=== PATIENT | female | born 1985 | race American Indian/Alaskan Native ===

== ENCOUNTER 2017-11-01 03:14 | Inpatient (IN) | payer MEDICAID, OTHER ==
[2017-11-01] MEDS ORDERED: LACTATED RINGERS 1,000 ML IV ONE (04:41)
[2017-11-01] MEDS ORDERED: LACTATED RINGERS 1,000 ML ONE ×3 (04:44→19:33)
[2017-11-01] MEDS ORDERED: POLYCILLIN/NS 2 GM/100 ML 2 GM/100 ML BAG IV ONE (07:30)
[2017-11-01 07:51] LABS: Basophils % (Auto) 0.7 % (0.0-1.8); Eosinophils % (Auto) 0.4 % (0.0-4.3); Hematocrit 37.3 % (30.3-42.9); Hemoglobin 12.8 gm/dl (10.1-14.3); Mean Corpuscular HGB Conc 34 % (30-34); Mean Corpuscular Hemoglobin 31 pg (28-32); Mean Corpuscular Volume 90 fl (79-97); Platelet Count 130 K/mm3 (140-440); Red Blood Count 4.15 M/mm3 (3.65-5.03); Red Cell Distribution Width 13.9 % (13.2-15.2); White Blood Count 7.6 K/mm3 (4.5-11.0)
--- NOTE | 2017-11-01 07:51 | History and Physical Report ---
History of Present Illness Date of examination: 11/01/17 Date of admission: 11/01/17 03:15 Chief complaint: Labor History of present illness: 32 year old presents to L&D in labor. 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 denies: smoking, alcohol abuse, prescription drug abuse, IV drug use - Obstetrical History Expected Date of Delivery: 11/06/17 Actual Gestation: 39 Week(s) 2 Day(s) : 2 Para: 0 Hx # Term Pregnancies: 1 Number of Pregnancies: 0 Spontaneous Abortions: 1 Induced : 0 Number of Living Children: 0 Medications and Allergies Allergies Allergy/AdvReac Type Severity Reaction Status Date / Time No Known Allergies Allergy Verified 11/01/17 04:42 Active Meds: Active Medications Ampicillin Sodium (Polycillin/Ns 2 Gm/100 Ml) 2 gm in 100 mls @ 100 mls/hr IV ONCE ONE Stop: 11/01/17 08:29 Ampicillin Sodium (Polycillin/Ns 1 Gm/50 Ml) 1 gm in 50 mls @ 100 mls/hr IV Q4HR ALICIA PRN Reason: Protocol Review of Systems All systems: negative (contractions) - Vital Signs Vital signs: Vital Signs Temp Resp 98.4 F 20 11/01/17 03:40 11/01/17 03:40 Temp Pulse Resp BP Pulse Ox 98.4 F 20 11/01/17 03:40 11/01/17 03:40 - Physical Exam Cardiovascular: Regular rate, Normal S1, Normal S2 Lungs: Positive: Clear to auscultation Abdomen: Positive: normal appearance, soft. Negative: distention, tenderness, guarding, rigidity Genitourinary (Female): Positive: normal external genitalia. Negative: perineal /vulvar lesions Vagina: Positive: normal moisture Uterus: Positive: enlarged. Negative: tender Extremities: Positive: normal. Negative: edema - Obstetrical FHR: category 1 Uterine Contraction Monitor Mode: External Cervical Dilatation: 3 Cervical Effacement Percentage: 50 station: -3 Uterine Contraction Pattern: Regular Uterine Contraction Intensity: Moderate Results All other labs normal. Assessment and Plan A: at 39 weeks, 2 days gestation. Labor. GBS positive. GDM, diet controlled. P:Admit. GBS prophylaxis. Anticipate .
[2017-11-01] MEDS ORDERED: PITOCin/NS 30 UNIT/500ML 30 UNITS/500 ML BAG IV SCH (12:00)
[2017-11-01] MEDS: POLYCILLIN/NS 1 GM/50 ML 1 GM/50 ML BAG IV SCH ×3 (12:09→21:12)
--- NOTE | 2017-11-01 12:17 | Ultrasound Report ---
ULTRASOUND OB LIMITED History: well being, presentation Technique: Transabdominal ultrasound with Doppler interrogation. Gestation: Single Position: Cephalic Heart Rate: 131 BPM
--- NOTE | 2017-11-01 13:44 | Progress Note ---
Assessment and Plan A: 32yo G 2 P 0 0 1 0 @ 39 weeks 2 days Latent Labor GDM diet-controlled PIH P: Oxytocin for labor augmentation Continue GBS prophylaxis Toxemia labs ordered - results pending Dr. Segundo consulted about POC Anticipate vaginal delivery Subjective - Subjective Date of service: 11/01/17 Principal diagnosis: Intrauterine @ term, Latent Labor Interval history: Patient presented to L&D in labor. complicated by GDM diet-controlled and Gestational HTN. 24-hr urine done 10/27 indicated 1159mg of protein. She is GBS pos. Patient reports: movement normal, contractions, other (She denies headache , vision changes, epigastric pain or N/V. ), no loss of fluid, no vaginal bleeding Objective - Vital Signs Vital Signs: Vital Signs - 12hr 11/01/17 11/01/17 11/01/17 03:40 12:15 13:16 Temperature 98.4 F Pulse Rate 71 67 Respiratory 20 Rate Blood Pressure 135/79 199/92 11/01/17 13:27 Temperature Pulse Rate 68 Respiratory Rate Blood Pressure 166/83 - Exam Breasts: deferred Cardiovascular: Regular rate, Normal S1, Normal S2 Lungs: Clear to auscultation, Normal air movement Abdomen: Present: normal appearance, soft Uterus: Present: normal FHR: category 1 FHR comments: Baseline 130, noderate variability, 15X15 accels, no decels Uterine Contraction Monitor Mode: External Cervical Dilatation: 3.5 Cervical Effacement Percentage: 50 station: -3 Uterine Contraction Pattern: Irregular Extremities: edema (1+ BLE) Deep Tendon Reflex Grade: Dull/Diminished +1 - Labs Labs: Abnormal Labs 11/01/17 04:45 Plt Count 130 L [place] % (Auto) 7.4 H Laboratory Results - last 24 hr 11/01/17 11/01/17 04:45 04:45 WBC 7.6 RBC 4.15 Hgb 12.8 Hct 37.3 MCV 90 MCH 31 MCHC 34 RDW 13.9 Plt Count 130 L Lymph % (Auto) 26.5 [place] % (Auto) 7.4 H Eos % (Auto) 0.4 Baso % (Auto) 0.7 Lymph # 2.0 [place] # 0.6 Eos # 0.0 Baso # 0.1 Seg Neutrophils % 65.0 Seg Neutrophils # 4.9 Blood Type O POSITIVE Antibody Screen Negative
[2017-11-01 14:11] LABS: Hematocrit 35.1 % (30.3-42.9); Hemoglobin 12.3 gm/dl (10.1-14.3); Mean Corpuscular HGB Conc 35 % (30-34); Mean Corpuscular Hemoglobin 31 pg (28-32); Mean Corpuscular Volume 88 fl (79-97); Platelet Count 130 K/mm3 (140-440); Red Blood Count 3.97 M/mm3 (3.65-5.03); Red Cell Distribution Width 13.8 % (13.2-15.2); White Blood Count 8.9 K/mm3 (4.5-11.0)
[2017-11-01 14:20] LABS: Bacteria,Urine 1+ /HPF (Negative); Bilirubin,Urine NEG (Negative); Blood,Urine NEG (Negative); Ketones,Urine TR mg/dL (Negative); Leukocyte Esterase,Urine NEG (Negative); Mucus,Urine FEW /HPF; Nitrite,Urine NEG (Negative); Urobilinogen,Urine < 2.0 mg/dL (<2.0)
[2017-11-01 14:29] LABS: Alanine Aminotransferase 8 units/L (7-56); Lactate Dehydrogenase 145 units/L (91-180); Uric Acid 5.7 mg/dL (3.5-7.6)
[2017-11-01] MEDS ORDERED: SUBLIMAZE IV ONE ×2 (16:00→17:49)
[2017-11-01] MEDS ORDERED: SUBLIMAZE ONE (16:08)
[2017-11-02] MEDS ORDERED: SUBLIMAZE IV PRN (00:16)
[2017-11-02] MEDS ORDERED: STADOL IV PRN (00:16)
--- NOTE | 2017-11-02 00:38 | Progress Note ---
Assessment and Plan - Patient Problems (1) 39 weeks gestation of Current Visit: Yes Status: Acute Plan to address problem: Anticipate . (2) Gestational HTN Current Visit: Yes Status: Acute Plan to address problem: Toxemia labs were normal. BP has been stable. patient has been asymptomatic. Will continue BP monitoring. (3) Positive GBS test Current Visit: Yes Status: Acute Plan to address problem: IV antibiotics given. (4) Diabetes, gestational Current Visit: Yes Status: Acute Plan to address problem: Glucose has been stable. Continue FS every 4 hours during labor. (5) Active labor Current Visit: Yes Status: Acute Plan to address problem: Continue fatal tracing and toco monitoring. Subjective - Subjective Date of service: 11/02/17 Principal diagnosis: 39 weeks and 3 days, gestational HTN Interval history: Patient is a 32 year old , EDC 11/06/17 at 39 weeks and 3 days who was admitted for contractions. She also has gestational HTN. Since admission, She has been asymptomatic and her BP has been stable. Toxemia labs were normal. tracing did show some variables after admission and has become CAT 1 thereafter. She was augmented with pitocin. Her last exam at 10:40 PM was 4 cm/ 60%/-3. Patient reports: movement normal, contractions, other (She denies headache , vision changes, epigastric pain or N/V. ), no loss of fluid, no vaginal bleeding Objective - Vital Signs Vital Signs: Vital Signs - 12hr 11/01/17 11/01/17 11/01/17 13:16 13:27 14:03 Temperature Pulse Rate 67 68 71 Respiratory Rate Blood Pressure 199/92 166/83 128/70 Blood Pressure [Right] O2 Sat by Pulse Oximetry 11/01/17 11/01/17 11/01/17 14:19 14:34 14:48 Temperature Pulse Rate 67 77 74 Respiratory Rate Blood Pressure 150/69 144/72 133/67 Blood Pressure [Right] O2 Sat by Pulse Oximetry 11/01/17 11/01/17 11/01/17 15:03 15:19 15:34 Temperature Pulse Rate 80 73 88 Respiratory Rate Blood Pressure 170/77 144/70 163/80 Blood Pressure [Right] O2 Sat by Pulse Oximetry 11/01/17 11/01/17 11/01/17 15:46 15:59 16:06 Temperature Pulse Rate 71 81 75 Respiratory Rate Blood Pressure 155/73 177/84 149/83 Blood Pressure [Right] O2 Sat by Pulse Oximetry 11/01/17 11/01/17 11/01/17 16:25 16:55 17:26 Temperature Pulse Rate 77 75 77 Respiratory Rate Blood Pressure 149/72 132/72 157/82 Blood Pressure [Right] O2 Sat by Pulse Oximetry 11/01/17 11/01/17 11/01/17 17:55 18:06 18:11 Temperature Pulse Rate 83 78 81 Respiratory Rate Blood Pressure 152/91 Blood Pressure [Right] O2 Sat by Pulse 99 99 Oximetry 11/01/17 11/01/17 11/01/17 18:16 18:21 18:25 Temperature Pulse Rate 83 77 73 Respiratory Rate Blood Pressure 135/69 Blood Pressure [Right] O2 Sat by Pulse 99 99 Oximetry 11/01/17 11/01/17 11/01/17 18:26 18:31 18:36 Temperature Pulse Rate 71 71 93 H Respiratory Rate Blood Pressure Blood Pressure [Right] O2 Sat by Pulse 99 99 100 Oximetry 11/01/17 11/01/17 11/01/17 18:41 18:46 18:51 Temperature Pulse Rate 79 82 87 Respiratory Rate Blood Pressure Blood Pressure [Right] O2 Sat by Pulse 100 100 100 Oximetry 11/01/17 11/01/17 11/01/17 18:56 19:01 19:06 Temperature Pulse Rate 82 96 H 92 H Respiratory Rate Blood Pressure 154/80 Blood Pressure [Right] O2 Sat by Pulse 99 100 98 Oximetry 11/01/17 11/01/17 11/01/17 19:11 19:16 19:21 Temperature Pulse Rate 77 63 73 Respiratory Rate Blood Pressure Blood Pressure [Right] O2 Sat by Pulse 99 99 99 Oximetry 11/01/17 11/01/17 11/01/17 19:25 19:26 19:31 Temperature Pulse Rate 77 76 84 Respiratory Rate Blood Pressure 134/74 Blood Pressure [Right] O2 Sat by Pulse 99 100 Oximetry 11/01/17 11/01/17 11/01/17 19:39 19:44 19:49 Temperature 97.1 F L Pulse Rate 87 82 80 Respiratory 15 Rate Blood Pressure Blood Pressure 152/87 [Right] O2 Sat by Pulse 99 99 99 Oximetry 11/01/17 11/01/17 11/01/17 19:52 19:54 19:55 Temperature Pulse Rate 78 82 94 H Respiratory Rate Blood Pressure 152/87 173/99 Blood Pressure [Right] O2 Sat by Pulse 99 Oximetry 11/01/17 11/01/17 11/01/17 19:58 19:59 20:04 Temperature Pulse Rate 79 92 H 78 Respiratory Rate Blood Pressure 139/69 Blood Pressure [Right] O2 Sat by Pulse 99 99 Oximetry 11/01/17 11/01/17 11/01/17 20:09 20:14 20:19 Temperature Pulse Rate 82 84 93 H Respiratory Rate Blood Pressure Blood Pressure [Right] O2 Sat by Pulse 99 99 99 Oximetry 11/01/17 11/01/17 11/01/17 20:24 20:25 20:29 Temperature Pulse Rate 74 80 65 Respiratory Rate Blood Pressure 139/65 Blood Pressure [Right] O2 Sat by Pulse 99 99 Oximetry 11/01/17 11/01/17 11/01/17 20:34 20:39 20:44 Temperature Pulse Rate 81 80 86 Respiratory Rate Blood Pressure Blood Pressure [Right] O2 Sat by Pulse 98 99 98 Oximetry 11/01/17 11/01/17 11/01/17 20:49 20:54 20:55 Temperature Pulse Rate 85 83 88 Respiratory Rate Blood Pressure 146/68 Blood Pressure [Right] O2 Sat by Pulse 98 98 Oximetry 11/01/17 11/01/17 11/01/17 20:59 21:04 21:09 Temperature Pulse Rate 85 85 93 H Respiratory Rate Blood Pressure Blood Pressure [Right] O2 Sat by Pulse 99 98 99 Oximetry 11/01/17 11/01/17 11/01/17 21:14 21:19 21:24 Temperature Pulse Rate 94 H 70 81 Respiratory Rate Blood Pressure Blood Pressure [Right] O2 Sat by Pulse 99 98 98 Oximetry 11/01/17 11/01/17 11/01/17 21:25 21:29 21:34 Temperature Pulse Rate 84 88 93 H Respiratory Rate Blood Pressure 138/63 Blood Pressure [Right] O2 Sat by Pulse 98 98 Oximetry 11/01/17 11/01/17 11/01/17 21:39 21:44 21:49 Temperature Pulse Rate 82 97 H 100 H Respiratory Rate Blood Pressure Blood Pressure [Right] O2 Sat by Pulse 98 98 98 Oximetry 11/01/17 11/01/17 11/01/17 21:54 21:55 21:59 Temperature Pulse Rate 94 H 100 H 95 H Respiratory Rate Blood Pressure 135/74 Blood Pressure [Right] O2 Sat by Pulse 98 98 Oximetry 11/01/17 11/01/17 11/01/17 22:04 22:09 22:14 Temperature Pulse Rate 82 89 97 H Respiratory Rate Blood Pressure Blood Pressure [Right] O2 Sat by Pulse 98 98 98 Oximetry 11/01/17 11/01/17 11/01/17 22:26 22:27 22:31 Temperature Pulse Rate 93 H 86 94 H Respiratory Rate Blood Pressure 152/72 Blood Pressure [Right] O2 Sat by Pulse 95 92 99 Oximetry 11/01/17 11/01/17 11/01/17 22:36 22:41 22:46 Temperature Pulse Rate 95 H 87 74 Respiratory Rate Blood Pressure Blood Pressure [Right] O2 Sat by Pulse 99 99 97 Oximetry 11/01/17 11/01/17 11/01/17 22:51 22:55 22:56 Temperature Pulse Rate 70 71 77 Respiratory Rate Blood Pressure 133/72 Blood Pressure [Right] O2 Sat by Pulse 98 98 Oximetry 11/01/17 11/01/17 11/01/17 23:01 23:06 23:11 Temperature Pulse Rate 76 80 78 Respiratory Rate Blood Pressure Blood Pressure [Right] O2 Sat by Pulse 98 97 96 Oximetry 11/01/17 11/01/17 11/01/17 23:16 23:21 23:25 Temperature Pulse Rate 74 89 66 Respiratory Rate Blood Pressure 145/70 Blood Pressure [Right] O2 Sat by Pulse 97 98 Oximetry 11/01/17 11/01/17 11/01/17 23:26 23:31 23:35 Temperature Pulse Rate 76 70 74 Respiratory Rate Blood Pressure Blood Pressure [Right] O2 Sat by Pulse 97 98 94 Oximetry 11/01/17 11/01/17 11/01/17 23:36 23:41 23:46 Temperature Pulse Rate 102 H 92 H 100 H Respiratory Rate Blood Pressure Blood Pressure [Right] O2 Sat by Pulse 95 99 99 Oximetry 11/01/17 11/01/17 11/01/17 23:51 23:55 23:56 Temperature Pulse Rate 88 68 74 Respiratory Rate Blood Pressure 134/65 Blood Pressure [Right] O2 Sat by Pulse 99 99 Oximetry 11/02/17 11/02/17 11/02/17 00:01 00:06 00:11 Temperature Pulse Rate 73 81 88 Respiratory Rate Blood Pressure Blood Pressure [Right] O2 Sat by Pulse 99 98 98 Oximetry 11/02/17 11/02/17 11/02/17 00:16 00:21 00:26 Temperature Pulse Rate 67 107 H 87 Respiratory Rate Blood Pressure 141/77 Blood Pressure [Right] O2 Sat by Pulse 99 99 96 Oximetry 11/02/17 00:31 Temperature Pulse Rate 92 H Respiratory Rate Blood Pressure Blood Pressure [Right] O2 Sat by Pulse 96 Oximetry - Exam Cardiovascular: Normal S1, Normal S2 Lungs: Clear to auscultation Vulva: both: normal FHR: category 1 Uterine Contraction Monitor Mode: External Cervical Dilatation: 4 Cervical Effacement Percentage: 60 station: -3 Uterine Contraction Pattern: Irregular Deep Tendon Reflex Grade: Normal +2 - Labs Labs: Abnormal Labs 11/01/17 11/01/17 11/01/17 04:45 13:45 13:45 MCHC 35 H Plt Count 130 L 130 L [place] % (Auto) 7.4 H Creatinine 0.4 L POC Glucose 11/01/17 14:05 MCHC Plt Count [place] % (Auto) Creatinine POC Glucose 63 L Laboratory Results - last 24 hr 11/01/17 11/01/17 11/01/17 04:45 04:45 04:45 WBC 7.6 RBC 4.15 Hgb 12.8 Hct 37.3 MCV 90 MCH 31 MCHC 34 RDW 13.9 Plt Count 130 L Lymph % (Auto) 26.5 [place] % (Auto) 7.4 H Eos % (Auto) 0.4 Baso % (Auto) 0.7 Lymph # 2.0 [place] # 0.6 Eos # 0.0 Baso # 0.1 Seg Neutrophils % 65.0 Seg Neutrophils # 4.9 Creatinine Estimated GFR POC Glucose Uric Acid AST ALT Lactate Dehydrogenase Urine Color Urine Turbidity Urine pH Ur Specific [place] Urine Protein Urine Glucose (UA) Urine Ketones Urine Blood Urine Nitrite Urine Bilirubin Urine Urobilinogen Ur Leukocyte Esterase Urine WBC (Auto) Urine RBC (Auto) U Epithel Cells (Auto) Urine Bacteria (Auto) Hyaline Casts Urine Mucus RPR Nonreactive Blood Type O POSITIVE Antibody Screen Negative 11/01/17 11/01/17 11/01/17 13:45 13:45 13:53 WBC 8.9 RBC 3.97 Hgb 12.3 Hct 35.1 MCV 88 MCH 31 MCHC 35 H RDW 13.8 Plt Count 130 L Lymph % (Auto) [place] % (Auto) Eos % (Auto) Baso % (Auto) Lymph # [place] # Eos # Baso # Seg Neutrophils % Seg Neutrophils # Creatinine 0.4 L Estimated GFR > 60 POC Glucose Uric Acid 5.7 AST 13 ALT 8 Lactate Dehydrogenase 145 Urine Color Yellow Urine Turbidity Clear Urine pH 6.0 Ur Specific [place] 1.016 Urine Protein 100 mg/dl Urine Glucose (UA) Neg Urine Ketones Tr Urine Blood Neg Urine Nitrite Neg Urine Bilirubin Neg Urine Urobilinogen < 2.0 Ur Leukocyte Esterase Neg Urine WBC (Auto) 1.0 Urine RBC (Auto) 2.0 U Epithel Cells (Auto) 1.0 Urine Bacteria (Auto) 1+ Hyaline Casts 1 Urine Mucus Few RPR Blood Type Antibody Screen 11/01/17 11/01/17 14:05 23:12 WBC RBC Hgb Hct MCV MCH MCHC RDW Plt Count Lymph % (Auto) [place] % (Auto) Eos % (Auto) Baso % (Auto) Lymph # [place] # Eos # Baso # Seg Neutrophils % Seg Neutrophils # Creatinine Estimated GFR POC Glucose 63 L 71 Uric Acid AST ALT Lactate Dehydrogenase Urine Color Urine Turbidity Urine pH Ur Specific [place] Urine Protein Urine Glucose (UA) Urine Ketones Urine Blood Urine Nitrite Urine Bilirubin Urine Urobilinogen Ur Leukocyte Esterase Urine WBC (Auto) Urine RBC (Auto) U Epithel Cells (Auto) Urine Bacteria (Auto) Hyaline Casts Urine Mucus RPR Blood Type Antibody Screen
[2017-11-02] MEDS ORDERED: LACTATED RINGERS 1,000 ML IV SCH ×2 (01:00→07:00)
[2017-11-02] MEDS: POLYCILLIN/NS 1 GM/50 ML 1 GM/50 ML BAG IV SCH ×2 (01:42→05:33)
[2017-11-02] MEDS ORDERED: ePHEDrine SULFATE ONE (03:13)
[2017-11-02] MEDS ORDERED: ePHEDrine SULFATE IV PRN (03:41)
[2017-11-02] MEDS ORDERED: NARCAN 2 MG/2 ML IV PRN (03:41)
--- NOTE | 2017-11-02 03:43 | Anesthesia Consultation ---
Anesthesia Consult and Med Hx Date of service: 11/02/17 - Airway Anesthetic Teeth Evaluation: Good ROM Head & Neck: Adequate Mental/Hyoid Distance: Adequate Mallampati Class: Class II Intubation Access Assessment: Probably Good - Pulmonary Exam CTA: Yes - Cardiac Exam Cardiac Exam: RRR - Pre-Operative Health Status ASA Pre-Surgery Classification: ASA3 Proposed Anesthetic Plan: Epidural, Spinal - Pulmonary Hx Asthma: No COPD: No Hx Pneumonia: No - Cardiovascular System Hx Hypertension: Yes (gestational) - Central Nervous System Hx Seizures: No Hx Psychiatric Problems: No - Endocrine Hx Renal Disease: No Hx End Stage Renal Disease: No Hx Non-Insulin Dependent Diabetes: Yes (gestational) - Hematic Hx Anemia: No Hx Sickle Cell Disease: No - Other Systems Hx Alcohol Use: No Hx Obesity: Yes (morbid) - Additional Comments Anesthesia Medical History Comments: +IUP
[2017-11-02] MEDS ORDERED: fentaNYL-BUPIV 2 MCG/ML-0.125% 200 MCG/100 ML BAG EPIDURAL SCH (04:00)
[2017-11-02] MEDS ORDERED: PEPCID IV ONE ×2 (05:56→06:06)
[2017-11-02] MEDS ORDERED: BICITRA ONE (05:56)
[2017-11-02] MEDS ORDERED: REGLAN ONE (05:56)
[2017-11-02] MEDS ORDERED: PITOCin/NS 20 UNIT/1000ML DRIP 20,000 MILLIUNITS/1,000 ML BAG IV ONE (06:06)
[2017-11-02] MEDS ORDERED: BICITRA PO ONE (06:06)
[2017-11-02] MEDS ORDERED: REGLAN IV ONE (06:06)
--- NOTE | 2017-11-02 06:21 | Progress Note ---
Assessment and Plan - Patient Problems (1) 39 weeks gestation of Current Visit: Yes Status: Acute (2) Gestational HTN Current Visit: Yes Status: Acute Plan to address problem: Toxemia labs were normal. BP has been stable. patient has been asymptomatic. Will continue BP monitoring. (3) Positive GBS test Current Visit: Yes Status: Acute Plan to address problem: IV antibiotics given. (4) Diabetes, gestational Current Visit: Yes Status: Acute Plan to address problem: Glucose has been stable. Continue FS every 4 hours during labor. (5) Active labor Current Visit: Yes Status: Acute Plan to address problem: Tracing is CAT 2 and patient is remote from delivery. I told the patient via a automotive parts coordinator that the tracing is not reassuring and that she needs to be delivery via C/section. Risks, benefits of the procedure were discussed in detail with the patient such as infection, hemorrhage requiring blood transfusion, injury to the bowel, bladder and blood vessels. She expressed understanding, her questions were answered, she gave her informed consent. Patient has been NPO. Anesthesia has been notified. Subjective - Subjective Date of service: 11/02/17 Principal diagnosis: 39 weeks and 3 days, gestational HTN Interval history: Patient is a 32 year old , EDC 11/06/17 at 39 weeks and 3 days who was admitted for contractions. She also has gestational HTN. Since admission, She has been asymptomatic and her BP has been stable. Toxemia labs were normal. tracing did show some variables after admission and has become CAT 1 thereafter. She was augmented with pitocin. Her last exam at 5:50 AM showed SROM with thin meconium fluid, cervixx 6 cm/100%/-2 with caput. tracing showed variables and recovery to baseline. Patient reports: movement normal, contractions, other (She denies headache , vision changes, epigastric pain or N/V. ), no loss of fluid, no vaginal bleeding Objective - Vital Signs Vital Signs: Vital Signs - 12hr 11/01/17 11/01/17 11/01/17 18:21 18:25 18:26 Temperature Pulse Rate 77 73 71 Respiratory Rate Blood Pressure 135/69 Blood Pressure [Right] O2 Sat by Pulse 99 99 Oximetry 11/01/17 11/01/17 11/01/17 18:31 18:36 18:41 Temperature Pulse Rate 71 93 H 79 Respiratory Rate Blood Pressure Blood Pressure [Right] O2 Sat by Pulse 99 100 100 Oximetry 11/01/17 11/01/17 11/01/17 18:46 18:51 18:56 Temperature Pulse Rate 82 87 82 Respiratory Rate Blood Pressure 154/80 Blood Pressure [Right] O2 Sat by Pulse 100 100 99 Oximetry 11/01/17 11/01/17 11/01/17 19:01 19:06 19:11 Temperature Pulse Rate 96 H 92 H 77 Respiratory Rate Blood Pressure Blood Pressure [Right] O2 Sat by Pulse 100 98 99 Oximetry 11/01/17 11/01/17 11/01/17 19:16 19:21 19:25 Temperature Pulse Rate 63 73 77 Respiratory Rate Blood Pressure 134/74 Blood Pressure [Right] O2 Sat by Pulse 99 99 Oximetry 11/01/17 11/01/17 11/01/17 19:26 19:31 19:39 Temperature Pulse Rate 76 84 87 Respiratory Rate Blood Pressure Blood Pressure [Right] O2 Sat by Pulse 99 100 99 Oximetry 11/01/17 11/01/17 11/01/17 19:44 19:49 19:52 Temperature 97.1 F L Pulse Rate 82 80 78 Respiratory 15 Rate Blood Pressure 152/87 Blood Pressure 152/87 [Right] O2 Sat by Pulse 99 99 Oximetry 11/01/17 11/01/17 11/01/17 19:54 19:55 19:58 Temperature Pulse Rate 82 94 H 79 Respiratory Rate Blood Pressure 173/99 139/69 Blood Pressure [Right] O2 Sat by Pulse 99 Oximetry 11/01/17 11/01/17 11/01/17 19:59 20:04 20:09 Temperature Pulse Rate 92 H 78 82 Respiratory Rate Blood Pressure Blood Pressure [Right] O2 Sat by Pulse 99 99 99 Oximetry 11/01/17 11/01/17 11/01/17 20:14 20:19 20:24 Temperature Pulse Rate 84 93 H 74 Respiratory Rate Blood Pressure Blood Pressure [Right] O2 Sat by Pulse 99 99 99 Oximetry 11/01/17 11/01/17 11/01/17 20:25 20:29 20:34 Temperature Pulse Rate 80 65 81 Respiratory Rate Blood Pressure 139/65 Blood Pressure [Right] O2 Sat by Pulse 99 98 Oximetry 11/01/17 11/01/17 11/01/17 20:39 20:44 20:49 Temperature Pulse Rate 80 86 85 Respiratory Rate Blood Pressure Blood Pressure [Right] O2 Sat by Pulse 99 98 98 Oximetry 11/01/17 11/01/17 11/01/17 20:54 20:55 20:59 Temperature Pulse Rate 83 88 85 Respiratory Rate Blood Pressure 146/68 Blood Pressure [Right] O2 Sat by Pulse 98 99 Oximetry 11/01/17 11/01/17 11/01/17 21:04 21:09 21:14 Temperature Pulse Rate 85 93 H 94 H Respiratory Rate Blood Pressure Blood Pressure [Right] O2 Sat by Pulse 98 99 99 Oximetry 11/01/17 11/01/17 11/01/17 21:19 21:24 21:25 Temperature Pulse Rate 70 81 84 Respiratory Rate Blood Pressure 138/63 Blood Pressure [Right] O2 Sat by Pulse 98 98 Oximetry 11/01/17 11/01/17 11/01/17 21:29 21:34 21:39 Temperature Pulse Rate 88 93 H 82 Respiratory Rate Blood Pressure Blood Pressure [Right] O2 Sat by Pulse 98 98 98 Oximetry 11/01/17 11/01/17 11/01/17 21:44 21:49 21:54 Temperature Pulse Rate 97 H 100 H 94 H Respiratory Rate Blood Pressure Blood Pressure [Right] O2 Sat by Pulse 98 98 98 Oximetry 11/01/17 11/01/17 11/01/17 21:55 21:59 22:04 Temperature Pulse Rate 100 H 95 H 82 Respiratory Rate Blood Pressure 135/74 Blood Pressure [Right] O2 Sat by Pulse 98 98 Oximetry 11/01/17 11/01/17 11/01/17 22:09 22:14 22:26 Temperature Pulse Rate 89 97 H 93 H Respiratory Rate Blood Pressure Blood Pressure [Right] O2 Sat by Pulse 98 98 95 Oximetry 11/01/17 11/01/17 11/01/17 22:27 22:31 22:36 Temperature Pulse Rate 86 94 H 95 H Respiratory Rate Blood Pressure 152/72 Blood Pressure [Right] O2 Sat by Pulse 92 99 99 Oximetry 11/01/17 11/01/17 11/01/17 22:41 22:46 22:51 Temperature Pulse Rate 87 74 70 Respiratory Rate Blood Pressure Blood Pressure [Right] O2 Sat by Pulse 99 97 98 Oximetry 11/01/17 11/01/17 11/01/17 22:55 22:56 23:01 Temperature Pulse Rate 71 77 76 Respiratory Rate Blood Pressure 133/72 Blood Pressure [Right] O2 Sat by Pulse 98 98 Oximetry 11/01/17 11/01/17 11/01/17 23:06 23:11 23:16 Temperature Pulse Rate 80 78 74 Respiratory Rate Blood Pressure Blood Pressure [Right] O2 Sat by Pulse 97 96 97 Oximetry 11/01/17 11/01/17 11/01/17 23:21 23:25 23:26 Temperature Pulse Rate 89 66 76 Respiratory Rate Blood Pressure 145/70 Blood Pressure [Right] O2 Sat by Pulse 98 97 Oximetry 11/01/17 11/01/17 11/01/17 23:31 23:35 23:36 Temperature Pulse Rate 70 74 102 H Respiratory Rate Blood Pressure Blood Pressure [Right] O2 Sat by Pulse 98 94 95 Oximetry 11/01/17 11/01/17 11/01/17 23:41 23:46 23:51 Temperature Pulse Rate 92 H 100 H 88 Respiratory Rate Blood Pressure Blood Pressure [Right] O2 Sat by Pulse 99 99 99 Oximetry 11/01/17 11/01/17 11/02/17 23:55 23:56 00:01 Temperature Pulse Rate 68 74 73 Respiratory Rate Blood Pressure 134/65 Blood Pressure [Right] O2 Sat by Pulse 99 99 Oximetry 11/02/17 11/02/17 11/02/17 00:06 00:11 00:16 Temperature Pulse Rate 81 88 67 Respiratory Rate Blood Pressure Blood Pressure [Right] O2 Sat by Pulse 98 98 99 Oximetry 11/02/17 11/02/17 11/02/17 00:21 00:26 00:31 Temperature Pulse Rate 107 H 87 92 H Respiratory Rate Blood Pressure 141/77 Blood Pressure [Right] O2 Sat by Pulse 99 96 96 Oximetry 11/02/17 11/02/17 11/02/17 00:36 00:41 00:46 Temperature Pulse Rate 70 107 H 74 Respiratory Rate Blood Pressure Blood Pressure [Right] O2 Sat by Pulse 95 97 98 Oximetry 11/02/17 11/02/17 11/02/17 00:51 00:55 00:56 Temperature Pulse Rate 108 H 98 H 105 H Respiratory Rate Blood Pressure 136/72 Blood Pressure [Right] O2 Sat by Pulse 99 99 Oximetry 11/02/17 11/02/17 11/02/17 01:01 01:06 01:11 Temperature Pulse Rate 79 67 103 H Respiratory Rate Blood Pressure Blood Pressure [Right] O2 Sat by Pulse 99 98 99 Oximetry 11/02/17 11/02/17 11/02/17 01:20 01:34 01:39 Temperature Pulse Rate 90 105 H 85 Respiratory Rate Blood Pressure Blood Pressure [Right] O2 Sat by Pulse 99 97 99 Oximetry 11/02/17 11/02/17 11/02/17 01:44 01:49 01:54 Temperature Pulse Rate 101 H 93 H 71 Respiratory Rate Blood Pressure Blood Pressure [Right] O2 Sat by Pulse 99 99 98 Oximetry 11/02/17 11/02/17 11/02/17 01:55 01:59 02:04 Temperature Pulse Rate 75 71 88 Respiratory Rate Blood Pressure 142/82 Blood Pressure [Right] O2 Sat by Pulse 98 98 Oximetry 11/02/17 11/02/17 11/02/17 02:09 02:14 02:19 Temperature Pulse Rate 97 H 101 H 107 H Respiratory Rate Blood Pressure Blood Pressure [Right] O2 Sat by Pulse 98 98 99 Oximetry 11/02/17 11/02/17 11/02/17 02:24 02:25 02:27 Temperature Pulse Rate 103 H 96 H 93 H Respiratory Rate Blood Pressure 160/89 Blood Pressure [Right] O2 Sat by Pulse 99 92 Oximetry 11/02/17 11/02/17 11/02/17 02:29 02:34 02:39 Temperature Pulse Rate 97 H 85 72 Respiratory Rate Blood Pressure Blood Pressure [Right] O2 Sat by Pulse 98 98 98 Oximetry 11/02/17 11/02/17 11/02/17 02:44 02:49 02:54 Temperature 97.5 F L Pulse Rate 78 80 81 Respiratory 16 Rate Blood Pressure Blood Pressure 139/85 [Right] O2 Sat by Pulse 99 98 98 Oximetry 11/02/17 11/02/17 11/02/17 02:56 02:59 03:00 Temperature Pulse Rate 81 88 85 Respiratory Rate Blood Pressure 139/85 Blood Pressure [Right] O2 Sat by Pulse 95 94 Oximetry 11/02/17 11/02/17 11/02/17 03:04 03:09 03:14 Temperature Pulse Rate 96 H 80 92 H Respiratory Rate Blood Pressure Blood Pressure [Right] O2 Sat by Pulse 96 96 96 Oximetry 11/02/17 11/02/17 11/02/17 03:20 03:25 03:30 Temperature Pulse Rate 106 H 81 109 H Respiratory Rate Blood Pressure 162/81 Blood Pressure [Right] O2 Sat by Pulse 97 96 97 Oximetry 11/02/17 11/02/17 11/02/17 03:31 03:33 03:35 Temperature Pulse Rate 85 83 82 Respiratory Rate Blood Pressure 149/79 163/79 153/73 Blood Pressure [Right] O2 Sat by Pulse 95 Oximetry 11/02/17 11/02/17 11/02/17 03:37 03:39 03:40 Temperature Pulse Rate 83 105 H 95 H Respiratory Rate Blood Pressure 152/73 144/84 Blood Pressure [Right] O2 Sat by Pulse 97 Oximetry 11/02/17 11/02/17 11/02/17 03:41 03:43 03:45 Temperature Pulse Rate 100 H 80 100 H Respiratory Rate Blood Pressure 143/91 138/72 Blood Pressure [Right] O2 Sat by Pulse 97 Oximetry 11/02/17 11/02/17 11/02/17 03:50 03:55 04:00 Temperature Pulse Rate 102 H 103 H 107 H Respiratory Rate Blood Pressure Blood Pressure [Right] O2 Sat by Pulse 96 96 95 Oximetry 11/02/17 11/02/17 11/02/17 04:05 04:10 04:15 Temperature Pulse Rate 103 H 106 H 95 H Respiratory Rate Blood Pressure Blood Pressure [Right] O2 Sat by Pulse 95 96 99 Oximetry 11/02/17 11/02/17 11/02/17 04:18 04:20 04:25 Temperature Pulse Rate 96 H 99 H 97 H Respiratory Rate Blood Pressure 133/82 Blood Pressure [Right] O2 Sat by Pulse 98 98 Oximetry 11/02/17 11/02/17 11/02/17 04:30 04:35 04:40 Temperature Pulse Rate 72 77 93 H Respiratory Rate Blood Pressure Blood Pressure [Right] O2 Sat by Pulse 98 98 98 Oximetry 11/02/17 11/02/17 11/02/17 04:45 04:48 04:50 Temperature Pulse Rate 98 H 97 H 77 Respiratory Rate Blood Pressure 142/96 Blood Pressure [Right] O2 Sat by Pulse 98 99 Oximetry 11/02/17 11/02/17 11/02/17 04:55 05:00 05:05 Temperature Pulse Rate 77 87 85 Respiratory Rate Blood Pressure Blood Pressure [Right] O2 Sat by Pulse 98 99 98 Oximetry 11/02/17 11/02/17 11/02/17 05:10 05:15 05:18 Temperature Pulse Rate 78 99 H 101 H Respiratory Rate Blood Pressure 138/86 Blood Pressure [Right] O2 Sat by Pulse 98 98 Oximetry 11/02/17 11/02/17 11/02/17 05:20 05:25 05:30 Temperature Pulse Rate 96 H 106 H 97 H Respiratory Rate Blood Pressure Blood Pressure [Right] O2 Sat by Pulse 98 98 98 Oximetry 11/02/17 11/02/17 11/02/17 05:35 05:40 05:45 Temperature Pulse Rate 91 H 105 H 100 H Respiratory Rate Blood Pressure Blood Pressure [Right] O2 Sat by Pulse 98 98 98 Oximetry 11/02/17 11/02/17 11/02/17 05:48 05:50 05:55 Temperature Pulse Rate 98 H 111 H 124 H Respiratory Rate Blood Pressure 131/77 Blood Pressure [Right] O2 Sat by Pulse 95 92 Oximetry 11/02/17 11/02/17 06:00 06:13 Temperature Pulse Rate 121 H 123 H Respiratory Rate Blood Pressure Blood Pressure [Right] O2 Sat by Pulse 96 96 Oximetry - Exam Cardiovascular: Normal S1, Normal S2 Lungs: Clear to auscultation Vulva: both: normal FHR: category 2 Uterine Contraction Monitor Mode: External Cervical Dilatation: 6 Cervical Effacement Percentage: 100 station: -2 with caput Uterine Contraction Pattern: Irregular - Labs Labs: Abnormal Labs 11/01/17 11/01/17 11/01/17 04:45 13:45 13:45 MCHC 35 H Plt Count 130 L 130 L Ferry % (Auto) 7.4 H Creatinine 0.4 L POC Glucose 11/01/17 14:05 MCHC Plt Count Ferry % (Auto) Creatinine POC Glucose 63 L Laboratory Results - last 24 hr 11/01/17 11/01/17 11/01/17 04:45 04:45 04:45 WBC 7.6 RBC 4.15 Hgb 12.8 Hct 37.3 MCV 90 MCH 31 MCHC 34 RDW 13.9 Plt Count 130 L Lymph % (Auto) 26.5 Ferry % (Auto) 7.4 H Eos % (Auto) 0.4 Baso % (Auto) 0.7 Lymph # 2.0 Ferry # 0.6 Eos # 0.0 Baso # 0.1 Seg Neutrophils % 65.0 Seg Neutrophils # 4.9 Creatinine Estimated GFR POC Glucose Uric Acid AST ALT Lactate Dehydrogenase Urine Color Urine Turbidity Urine pH Ur Specific Hildebran Urine Protein Urine Glucose (UA) Urine Ketones Urine Blood Urine Nitrite Urine Bilirubin Urine Urobilinogen Ur Leukocyte Esterase Urine WBC (Auto) Urine RBC (Auto) U Epithel Cells (Auto) Urine Bacteria (Auto) Hyaline Casts Urine Mucus RPR Nonreactive Blood Type O POSITIVE Antibody Screen Negative 11/01/17 11/01/17 11/01/17 13:45 13:45 13:53 WBC 8.9 RBC 3.97 Hgb 12.3 Hct 35.1 MCV 88 MCH 31 MCHC 35 H RDW 13.8 Plt Count 130 L Lymph % (Auto) Ferry % (Auto) Eos % (Auto) Baso % (Auto) Lymph # Ferry # Eos # Baso # Seg Neutrophils % Seg Neutrophils # Creatinine 0.4 L Estimated GFR > 60 POC Glucose Uric Acid 5.7 AST 13 ALT 8 Lactate Dehydrogenase 145 Urine Color Yellow Urine Turbidity Clear Urine pH 6.0 Ur Specific [place] 1.016 Urine Protein 100 mg/dl Urine Glucose (UA) Neg Urine Ketones Tr Urine Blood Neg Urine Nitrite Neg Urine Bilirubin Neg Urine Urobilinogen < 2.0 Ur Leukocyte Esterase Neg Urine WBC (Auto) 1.0 Urine RBC (Auto) 2.0 U Epithel Cells (Auto) 1.0 Urine Bacteria (Auto) 1+ Hyaline Casts 1 Urine Mucus Few RPR Blood Type Antibody Screen 11/01/17 11/01/17 11/02/17 14:05 23:12 03:10 WBC RBC Hgb Hct MCV MCH MCHC RDW Plt Count Lymph % (Auto) Ferry % (Auto) Eos % (Auto) Baso % (Auto) Lymph # Ferry # Eos # Baso # Seg Neutrophils % Seg Neutrophils # Creatinine Estimated GFR POC Glucose 63 L 71 78 Uric Acid AST ALT Lactate Dehydrogenase Urine Color Urine Turbidity Urine pH Ur Specific H[place]br[place] Urine Protein Urine Glucose (UA) Urine Ketones Urine Blood Urine Nitrite Urine Bilirubin Urine Urobilinogen Ur Leukocyte Esterase Urine WBC (Auto) Urine RBC (Auto) U Epithel Cells (Auto) Urine Bacteria (Auto) Hyaline Casts Urine Mucus RPR Blood Type Antibody Screen
[2017-11-02] MEDS ORDERED: WATER FOR IRRIG STERILE IR ONE (06:35)
[2017-11-02] MEDS ORDERED: NACL 0.9% IR ONE (06:35)
[2017-11-02] MEDS ORDERED: XYLOCAINE MPF 2% ONE ×3 (06:46→07:04)
[2017-11-02] MEDS ORDERED: ZOFRAN ONE (06:52)
[2017-11-02] MEDS ORDERED: MORPHINE ONE (06:55)
[2017-11-02] MEDS ORDERED: HEMABATE IM ONE ×2 (07:00→07:14)
[2017-11-02] MEDS ORDERED: PITOCin/NS 20 UNIT/1000ML DRIP 20 UNITS/1,000 ML BAG IV SCH ×2 (07:00→09:00)
[2017-11-02] MEDS ORDERED: ANCEF/STERILE WATER 2 GM/20 ML 2 GM/20 ML SYRINGE IV NR (07:00)
[2017-11-02] MEDS ORDERED: NEO SYNEPHRINE/NS Syringe(OR USE) IV ONE ×2 (07:10→07:56)
[2017-11-02] MEDS ORDERED: SODIUM CHLORIDE FLUSH SYRINGE 10 ML IV PRN ×2 (08:00→10:00)
[2017-11-02] MEDS ORDERED: NACL 0.9% 1000 ML 1,000 ML ONE ×2 (08:02→08:21)
[2017-11-02] MEDS ORDERED: MORPHINE IV PRN ×2 (08:22→08:30)
[2017-11-02] MEDS ORDERED: ZOFRAN IV PRN ×2 (08:22→08:30)
[2017-11-02] MEDS ORDERED: BENADRYL IV PRN (08:30)
[2017-11-02] MEDS ORDERED: NARCAN 0.4 MG/1 ML IV PRN ×2 (08:30→09:30)
--- NOTE | 2017-11-02 08:58 | Operative Report ---
Operative Report Operative Report: Pre-operative diagnosis: 1. SIUP at 39 weeks and 3 days gestation in active labor. 2. Non-reassuring tracing. 3. Meconium amniotic fluid. 4. Failure to dilate and descend. 5. Gestational HTN. 6. Gestational diabetes Post operative diagnosis: 1. Same as preop diagnosis. Procedure: primary low transverse C/section. Anesthesia: Epidural Surgeon: Dr. Colin Warehouse Receiving Supervisor: None IVF: Ringer's lactate 1 L EBL: 1400 cc Urine output: 100 cc clear Complications: Intraoperative uterine atony responsive to IV pitocin and myometrial hemabate. Intraoperative findings: 1. Male infant delivered from an NADIA position at 6:58 AM with Apgars of 8 at 1 minute and 9 at 5 minutes, weight 6 lbs 12 oz. 2. Compressing nuchal cord x 1. 3. Meconium amniotic fluid. 2. Intraoperative uterine atony responsive to IV pitocin and myometrial hemabate. Procedure details: The patient was taken to the operative room with an IV fluid infusing ringer's lactate, a Malloy catheter, and epidural anesthesia in place. In the operating room, she was placed in the dorsal supine position with a leftward tilt. She was loaded with epidural anesthesia. The abdomen was washed and she was prepared and draped in the usual sterile fashion. A confirming adequate epidural anesthesia, a Pfannenstiel skin incision was made in the lower abdomen about 2 cm above the pubic symphysis using the scalpel. Incision was carried down to the underlying fascia using the Bovie. The fascia was incised bilaterally in a curvilinear fashion using the Bovie. 2 straight Kocker clamps were used to grasp the upper edge of the fascia from which the underlying rectus abdominis muscle was dissected off using the Bovie. A similar procedure was done with the lower edge of the fascia to dissect the underlying rectus abdominis muscle. The muscle was bluntly from the midline by pulling. The parietal peritoneum was grasped with 2 hemostat clamps and entered sharply using Metzenbaum scissors. A quick survey of the anatomy revealed a gravid uterus, normal fallopian tubes and ovaries bilaterally. A bladder flap was created. Cam'O retractor was placed at the incision for proper visualization. A low transverse incision was made in the lower uterine segment using the scalpel and opened bilaterally in a curvilinear fashion using bandage scissors. There was a scant amount of meconium amniotic fluid as the membranes had been ruptured during the labor. The was found in an NADIA position, the head had caput and was delivered atraumatically. There was a tight nuchal cord 1 which was compressing. Bulb suction of the mouth and nose was performed. This was followed by the delivery of the shoulders and the rest of the body atraumatically at 6:50 AM. The cord was clamped 2 and cut and the was handed off to the awaiting mechanical engineering manager. Apgars were 8 at 1 minute and 9 at 5 minutes and weighed 6 pounds and 12 ounces. Cord blood was collected. The placenta was delivered manually and it was complete with a three -vessel cord. The uterine cavity was cleaned of clots and debris using dry lap sponges. There was uterine atony. Pitocin was given followed by myometrial Hemabate with good response. The uterine incision was repaired in a running locked fashion using 0 Vicryl sutures. A second layer of imbrication was placed. The gutters were cleaned of clots and debris using dry lap sponges. After confirming adequate hemostasis, the instruments were removed from the abdomen. The fascia was closed in a running fashion using 0 Vicryl sutures. The skin was closed with teri. Sterile dressing was placed. Counts of laps, needles, sponges, and instruments were correct 2. She tolerated the procedure well. She was taken to the recovery room in a stable condition.
[2017-11-02] MEDS: MORPHINE IV PRN ×2 (08:59→16:00)
--- NOTE | 2017-11-02 09:20 | Post Anesthesia Evaluation ---
- Post Anesthesia Evaluation Patient Participated: Yes Airway Patent: Yes Stable Respiratory Function: Yes Nausea/Vomiting: No Temp > 96.8F: Yes Pain Manageable: Yes Adequeate Hydration: Yes Anesthesia Complications: No Patient on Ventilator: No
[2017-11-02] MEDS ORDERED: TUCKS PAD TP PRN (09:30)
[2017-11-02] MEDS ORDERED: PERCOCET 5/325 PO PRN (09:30)
[2017-11-02] MEDS ORDERED: TYLENOL PO PRN (09:30)
[2017-11-02] MEDS ORDERED: LANSINOH TP PRN (10:00)
[2017-11-02 10:03] LABS: Hematocrit 28.5 % (30.3-42.9); Hemoglobin 9.6 gm/dl (10.1-14.3)
[2017-11-02] MEDS ORDERED: NACL 0.9% 1000 ML 1,000 ML IV SCH (11:00)
[2017-11-02 15:17] LABS: Hematocrit 27.4 % (30.3-42.9); Hemoglobin 9.2 gm/dl (10.1-14.3); Mean Corpuscular HGB Conc 34 % (30-34); Mean Corpuscular Hemoglobin 30 pg (28-32); Mean Corpuscular Volume 89 fl (79-97); Platelet Count 151 K/mm3 (140-440); Red Blood Count 3.09 M/mm3 (3.65-5.03); Red Cell Distribution Width 14.1 % (13.2-15.2); White Blood Count 18.4 K/mm3 (4.5-11.0)
[2017-11-03] MEDS ORDERED: BOOSTRIX IM ONE (06:00)
[2017-11-03] MEDS: MOTRIN PO PRN ×2 (08:32→16:33)
[2017-11-03] MEDS ORDERED: MYLICON PO PRN (09:30)
--- NOTE | 2017-11-03 10:15 | Progress Note ---
Assessment and Plan A: POD #1 Asymptomatic Anemia P: Follow Routine PostOp Orders Infed 100mg IM x 1 dose Ferrous Sulfate 325mg PO TID Subjective - Subjective Date of service: 11/03/17 Principal diagnosis: 39 weeks and 3 days, gestational HTN Patient reports: appetite normal, voiding normally, pain well controlled, flatus , ambulating normally : doing well, bottle feeding Objective - Vital Signs Latest vital signs: Vital Signs Temp Pulse Resp BP Pulse Ox 11/03/17 08:57 99.4 F 99 H 18 139/77 95 11/03/17 04:15 98.8 F 90 18 124/66 89 11/03/17 00:10 99.3 F 96 H 18 125/68 94 11/02/17 20:30 98.6 F 109 H 18 123/67 96 11/02/17 16:00 97.7 F 70 18 110/55 Intake and Output 11/02/17 11/03/17 11/03/17 22:59 06:59 14:59 Intake Total 240 240 Output Total 750 1300 Balance -510 -1060 Intake: Oral 240 240 Output: Urine 750 1300 Indwelling Catheter 750 Void 1300 Other: Total, Intake Amount 120 120 Total, Output Amount 600 600 # Voids Void 1 1 - Exam Breasts: Present: normal Cardiovascular: Present: Regular rate Lungs: Present: Clear to auscultation Abdomen: Present: normal appearance, soft, normal bowel sounds Uterus: Present: normal, firm, fundal height below umbilicus Extremities: Present: normal Incision: Present: normal, dry, dressed - Labs Labs: Abnormal lab results 11/02/17 Range/Units 15:05 WBC 18.4 H (4.5-11.0) K/mm3 RBC 3.09 L (3.65-5.03) M/mm3 Hgb 9.2 L (10.1-14.3) gm/dl Hct 27.4 L (30.3-42.9) %
[2017-11-03] MEDS ORDERED: PERCOCET 5/325 PO PRN (11:00)
[2017-11-03] MEDS ORDERED: INFED IM NR (11:30)
[2017-11-03] MEDS ORDERED: Fluarix Quad 2017-2018(36 MOS+ IM ONE (12:00)
[2017-11-03] MEDS: FEOSOL PO SCH ×2 (16:36→20:59)
[2017-11-03] MEDS ORDERED: INFED IM ONE (22:00)
[2017-11-03] MEDS ORDERED: SENOKOT PO PRN (22:00)
--- NOTE | 2017-11-04 10:24 | Progress Note ---
Assessment and Plan A: POD #2 Asymptomatic Anemia P: Follow Routine PostOp Orders Ferrous Sulfate 325mg PO TID D/C Home today per patient request RTO in One Week Subjective - Subjective Date of service: 11/04/17 Principal diagnosis: 39 weeks and 3 days, gestational HTN Patient reports: appetite normal, voiding normally, pain well controlled, flatus , bowel movement, ambulating normally : doing well Objective - Vital Signs Latest vital signs: Vital Signs Temp Pulse Resp BP Pulse Ox 11/03/17 23:30 97.9 F 94 H 18 128/73 97 11/03/17 17:50 98.4 F 92 H 18 134/71 Intake and Output 11/03/17 11/04/17 11/04/17 22:59 06:59 14:59 Intake Total 360 240 Balance 360 240 Intake: Oral 360 240 Other: Total, Intake Amount 120 120 # Voids Void 1 1 - Exam Breasts: Present: normal Cardiovascular: Present: Regular rate Lungs: Present: Clear to auscultation Abdomen: Present: normal appearance, soft, normal bowel sounds Uterus: Present: normal, firm, fundal height below umbilicus Extremities: Present: normal Incision: Present: normal, dry, intact
--- NOTE | 2017-11-04 10:25 | Discharge Summary ---
Providers - Providers Date of Admission: 11/01/17 03:15 Date of discharge: 11/04/17 Attending physician: ADA SEBASTIAN MD Primary care physician: ADA SEBASTIAN MD Hospitalization Reason for admission: active labor Delivery: Procedure: repeat low transverse Episiotomy: none Laceration: none Incision: normal, dry, intact Other procedures: none complications: none Discharge diagnosis: IUP at term delivered baby: male Condition at discharge: Good Disposition: DC-01 TO HOME OR SELFCARE Plan - Provider Discharge Summary Activity: routine, no sex for 6 weeks, no heavy lifting 4 weeks, no strenuous exercise Diet: routine Instructions: routine Additional instructions: [] Smoking cessation referral if applicable(refer to patient education folder for contact #) [] Refer to [facility] Booklet Call your doctor immediately for: * Fever > 100.5 * Heavy vaginal bleeding ( >1 pad per hour) * Severe persistent headache * Shortness of breath * Reddened, hot, painful area to leg or breast * Drainage or odor from incision. * Keep incision clean and dry at all times and follow doctor's instructions regarding bathing/showering - Follow up plan Follow up: ADA SEBASTIAN MD [Primary Care Provider] - 7 Days
[2017-11-04] MEDS: FEOSOL PO SCH (10:32)
[2017-11-04] MEDS: MOTRIN PO PRN (10:32)
[2017-11-04 10:37] VITALS: BP 127/75
[2017-11-04] MEDS ORDERED: Fluarix Quad 2017-2018(36 MOS+ IM ONE (12:00)
== END 2017-11-04 15:40 | disposition home or self-care (01) | DRG 766 ==
LOC: TRG 03:14 → LD 03:15 → TRG 03:15 → OB 11-02 09:29
PROVIDERS: ADMIT Obstetrics & Gynecology; ATTEND Obstetrics & Gynecology
PROC: 10D00Z1 Extraction of Products of Conception, Low, Open Approach (ICD-10-PCS; principal; 2017-11-02)
PROC: 3E0234Z Introduction of Serum, Toxoid and Vaccine into Muscle, Percutaneous Approach (ICD-10-PCS; 2017-11-03)
DX: O24.420 Gestational diabetes mellitus in childbirth, diet controlled (principal); O99.824 Streptococcus B carrier state complicating childbirth; O13.4 Gestational [pregnancy-induced] hypertension without significant proteinuria, complicating childbirth; O99.283 Endocrine, nutritional and metabolic diseases complicating pregnancy, third trimester; E03.9 Hypothyroidism, unspecified; O76 Abnormality in fetal heart rate and rhythm complicating labor and delivery; O77.0 Labor and delivery complicated by meconium in amniotic fluid; O62.2 Other uterine inertia; Z37.0 Single live birth; Z3A.39 39 weeks gestation of pregnancy; O90.81 Anemia of the puerperium; D64.9 Anemia, unspecified; Z23 Encounter for immunization
CPT/HCPCS: 36415; 76815; 81001; 82565; 82962; 83615; 84450; 84460; 84550; 85014; 85018; 85025; 85027; 86592; 86850; 86900; 86901; 88307; 90471; 90686; 90715; 99211; A6250; G0008; G0463; J0290; J1750; J2270; J2370; J2405; J2590; J2765; J3010; J7030; J7120